=== PATIENT | female | born 1985 | race Caucasian/White ===

== ENCOUNTER 2019-01-01 07:59 | Outpatient (RCR) | payer BC, SELFPAY ==
[2019-01-01 09:35] LABS: Hematocrit 35.5 % (37.0-47.0); Hemoglobin 11.4 g/dL (12.0-15.0)
[2019-01-01 09:47] LABS: Glucose 1 Hour PP 50gm Dose 157 mg/dL
[2019-01-01 10:16] LABS: Vitamin D 25 Hydroxy 36.4 ng/mL
[2019-01-01 10:38] LABS: HIV 1/2 Ab P24 Ag Result Negative (Negative)
[2019-01-02] MEDS: RHO(D) IMMUNE GLOBULIN 300 MCG SYRINGE IM (15:49)
== END 2019-04-01 23:59 | disposition home or self-care (01) ==
LOC: ANHLAB 07:59
PROVIDERS: Visit Provider Obstetrics & Gynecology Gynecology
DX: Z29.13 Encounter for prophylactic Rho(D) immune globulin (principal); O36.0930 Maternal care for other rhesus isoimmunization, third trimester, not applicable or unspecified; Z36.89 Encounter for other specified antenatal screening; Z3A.00 Weeks of gestation of pregnancy not specified
CPT/HCPCS: 36415; 36430; 82306; 82947; 85014; 85018; 86703; 90384; 96372; G0432; J2790

== ENCOUNTER 2019-03-13 15:46 | Outpatient (RCR) | payer BC, SELFPAY ==
[2019-02-20 16:36] VITALS: BP 131/69; PULSE 98
--- NOTE | 2019-02-25 18:22 | PC.NURSE ---
Updated Dr. Guo on FHT strip with variable decelerations during NST. Patient contractions noted via TOCO monitoring, patient states she is not feeling contractions. Order given for BPP and BERNARD.
[2019-02-25 19:05] VITALS: BP 136/86; PULSE 102
--- NOTE | 2019-02-25 19:06 | PC.NURSE ---
Patient transported to ultrasound via wheelchair.
--- NOTE | 2019-02-25 19:44 | PC.NURSE ---
Dr Guo updated on BPP and BERNARD results. Orders given to discharge patient to home.
[2019-02-28 21:30] VITALS: BP 135/77; PULSE 93
[2019-03-04 16:26] VITALS: BP 130/76; PULSE 89
[2019-03-06 16:53] VITALS: BP 139/67; PULSE 79
[2019-03-07 10:54] VITALS: BP 126/73; PULSE 79
[2019-03-10 16:50] VITALS: BP 148/76; PULSE 93
--- NOTE | ~2019-03-13 | US_ITS ---
EXAMINATION: US OB limited w BPP EXAM DATE: 02/25/2019 19:24 INDICATION: Nonreactive stress test. Check biophysical profile and amniotic fluid index. Third trime ster. TECHNIQUE: Pelvic obstetrical transabdominal sonogram was performed by a technologist. There are mu ltiple grayscale and Doppler images available for interpretation. Comparison is made to prior examina tion from 01/29/2019. FINDINGS: There is a single fetus identified in vertex presentation with a heart rate of 145 beats pe r minute. The placenta is located in the anterior position. There is no sonographic evidence of retr oplacental hemorrhage identified. The amniotic fluid index is 23.8 centimeters, which is normal. (The 5th -- 95th percentile range is 7.7-24.9.) BIOPHYSICAL PROFILE (performed by the technologist) breathing (30 sec sustained breathing in 30 minutes): 2 out of 2 movement (3 gross body movements in 30 minutes): 2 out of 2 tone (one episode of [id number]-[id number]-wptlgcg limb movement): 2 out of 2 Amniotic fluid pocket (2 cm): 2 out of 2 Total score: 8 out of 8 IMPRESSION: 1. Single fetus with heart rate of 145 bpm. 2. Normal biophysical profile score of 8 out of 8. 3. Normal BERNARD 23.8 cm. Reviewed, dictated and finalized at location [facility]
[2019-03-13 16:52] LABS: Hematocrit 35.9 % (37.0-47.0); Hemoglobin 10.9 g/dL (12.0-15.0); Mean Corpuscular HGB Conc 30.4 g/dl (32-36); Mean Corpuscular Hemoglobin 24.4 pg (26-34); Mean Corpuscular Volume 80.5 fl (80-100); Mean Platelet Volume 10.6 fl (7.4-10.4); Platelet Count Result 242 k/mm3 (150-375); Red Blood Count 4.46 M/mm3 (4.2-5.4); Red Cell Distribution Width 16.1 % (11.5-14.5); White Blood Count 9.3 K/mm3 (4.5-10.0)
[2019-03-13 17:02] LABS: Add Urine Microscopic? NO; Appearance Urine Clear (Clear); Bilirubin Urine Negative (Negative); Blood Urine Negative (Negative); Color Urine Straw (Yellow); Glucose Urine UA Negative (Negative); Ketones Urine Negative (Negative); Leukocyte Esterase Ur Negative LEU/UL (Negative); Nitrate Urine Negative (Negative); Protein Urine Negative (Negative); Specific Grav Ur 1.008 (1.001-1.035); Urobilinogen Urine Negative mg/dL (<2.0)
[2019-03-13 17:05] LABS: Alanine Aminotransferase 13 U/L (4-35); Albumin Level 3.2 g/dL (3.5-5.1); Alkaline Phosphatase 85 U/L (38-126); Aspartate Amino Transferase 15 U/L (14-36); Bilirubin,Total 0.1 mg/dL (0.2-1.3); Blood Urea Nitrogen 7 mg/dL (7-17); Calcium 9.2 mg/dL (8.4-10.2); Carbon Dioxide 23 mmol/L (22-30); Chloride 105 mmol/L (98-107); Estimated Glomerular Filt Rate > 60; Glucose 98 mg/dL (65-105); Potassium 3.4 mmol/L (3.4-5.0); Sodium 140 mmol/L (137-145); Uric Acid 3.1 mg/dL (2.5-7.5)
[2019-03-13 17:06] LABS: Total Protein Urine Random 16 mg/dL
[2019-03-13 17:15] VITALS: BP 149/90; PULSE 97
== END 2019-04-15 07:53 | disposition home or self-care (01) ==
LOC: ANHOBOP 15:46
PROVIDERS: Visit Provider Obstetrics & Gynecology Gynecology
DX: O24.419 Gestational diabetes mellitus in pregnancy, unspecified control (principal); O36.8130 Decreased fetal movements, third trimester, not applicable or unspecified; Z3A.35 35 weeks gestation of pregnancy; Z3A.36 36 weeks gestation of pregnancy; Z3A.37 37 weeks gestation of pregnancy; Z3A.38 38 weeks gestation of pregnancy
CPT/HCPCS: 36415; 59025; 76815; 76819; 80053; 81003; 81050; 82570; 84156; 84550; 85027

== ENCOUNTER 2020-01-13 02:31 | Outpatient (CLI) | payer BC, SELFPAY ==
[2020-01-13 19:46] LABS: SARS-CoV-2 RNA PCR Negative
== END 2020-01-13 02:32 | disposition home or self-care (01) ==
LOC: ANHCOVIDDT 02:31
PROVIDERS: Visit Provider Urology
DX: Z01.818 Encounter for other preprocedural examination (principal); Z20.828 Contact with and (suspected) exposure to other viral communicable diseases
CPT/HCPCS: 87635; C9803; U0003

== ENCOUNTER 2020-01-16 00:54 | Day surgery (SDC) | payer BC, SELFPAY ==
[2020-01-06 13:23] VITALS: BMI 40.9
--- NOTE | 2020-01-11 13:44 | PM.IMHP ---
H&P: HPI History of Present Illness Date/Time: 01/11/20 13:44 Chief complaint: Skenes Gland Cyst Narrative: Fior Cisse is a 34 year old female with a [place]'s gland cyst Review of Systems Review of Systems: All systems reviewed & are unremarkable except as noted in HPI and below PMFSH Past Medical History Medical History (Updated 01/11/20 @ 13:46 by Hilton Somers MD) Anxiety Depression Gestational diabetes Morbid obesity with BMI of 45.0-49.9, adult Surgical History Surgical History (Updated 03/18/19 @ 07:38 by Taniya Rodríguez MD) Previous section complicating S/P cholecystectomy Family History Family History (Updated 02/20/19 @ 14:54 by Andriy Melton RN) Mother Depression Bipolar disorder Grandparent Cancer Social History Social History Smoking status: Never smoker Second hand tobacco smoke exposure: No Alcohol intake: current Drinks per week: 1 Substance use: current Substance use type: marijuana Last use: MJ--04/2018 Gender identity (if verbalized by the patient): Female Spiritual care concerns: No Meds Home Medications and Allergies Home Medications Medication Instructions Recorded Confirmed Type ergocalciferol (vitamin D2) 50,000 unit PO WEEKLY 02/20/19 01/06/20 History [Vitamin D2] vilazodone [Viibryd] 40 mg PO DAILY 01/06/20 01/06/20 History Allergies Allergy/AdvReac Type Severity Reaction Status Date / Time adhesive tape AdvReac Blister Verified 01/06/20 13:26 Exam Const: General: cooperative and healthy appearing Nutritional Appearance: obese HENMT: Head: normal to inspection Mouth: Yes Normal oral and palatal mucosa present Eyes: General: appearance normal, both eyes and all related structures Chest: Chest palpation & inspection: normal inspection of the chest GI: Inspection: normal to inspection Skin: General skin exam: normal color Neuro: General: oriented to person Assessment and Plan Assessment and plan (1) [place]'s gland cyst: Code(s): N36.8 - Other specified disorders of urethra Status: Acute Assessment and Plan: excision of skenes gland cyst
--- NOTE | 2020-01-15 08:58 | WPDANESEPPF ---
Anes - Initial Pre Proc Eval Procedure: Operation Date: 01/16/20 09:15 Proposed Procedures p Excision Of Skenes Gland Cyst - Hilton Somers MD Date/Time: 01/15/20 08:58 Surgeon: Hilton Somers MD Pre Op Diagnosis: Skenes Gland Cyst Patient Data Age: 34 Gender: F Height: 1.68 m Weight: 115 kg Allergies Allergy/AdvReac Type Severity Reaction Status Date / Time adhesive tape AdvReac Blister Verified 01/16/20 08:03 Home Medications Medication Instructions Recorded Confirmed Type ergocalciferol (vitamin D2) 50,000 unit PO WEEKLY 02/20/19 01/16/20 History [Vitamin D2] vilazodone [Viibryd] 40 mg PO DAILY 01/06/20 01/06/20 History Patient hx anesthesia problems: none Family hx anesthesia problems: none PMFSH Past Medical History Medical History (Updated 01/11/20 @ 13:46 by Hilton Somers MD) Anxiety Depression Gestational diabetes Morbid obesity with BMI of 45.0-49.9, adult Surgical History Surgical History (Updated 03/18/19 @ 07:38 by Taniya Rodríguez MD) Previous section complicating S/P cholecystectomy Family History Family History (Updated 02/20/19 @ 14:54 by Andriy Melton RN) Mother Depression Bipolar disorder Grandparent Cancer Social History Social History Smoking status: Never smoker Second hand tobacco smoke exposure: No Alcohol intake: current Drinks per week: 1 Substance use: current Substance use type: marijuana Last use: MJ--04/2018 Living arrangements: with family Gender identity (if verbalized by the patient): Female Spiritual care concerns: No Anes - Eval Final PreProcedure Day of Procedure 01/15/20 08:58 Patient weight: morbidly obese Heart: regular rate and rhythm Lungs: clear to auscultation and normal air movement Airway: Mallampati scale class II Neurological: alert and oriented Last oral intake: >/= 8 hours ASA classification: III Emergent: no Anesthetic plan: proceed Anesthesia type and monitoring: general GIVS and standard monitoring Informed Consent: The patient's anesthetic plan and its attendant risks and benefits were discussed with the patient/family/POA. Questions were solicited and answers provided to the satisfaction of the patient/family/POA.
[2020-01-16] VITALS (7 sets, daily range): BP systolic 124–137; BP diastolic 64–81; PULSE 57–77; RESP 14–18; TEMP 36.1–36.6; O2SAT 94–100
--- NOTE | 2020-01-16 07:13 | WPDHPUPDATE1 ---
History and Physical Update Update Date/Time: 01/16/20 07:13 History and Physical has been reviewed, including an updated exam of the patient. There are NO changes in the patient's condition. Risks, benefits, and alternatives have been discussed and questions answered. Patient agrees to proceed with procedure.
[2020-01-16] MEDS: LACTATED RINGERS 1,000 ML 30 ML IV CONT (08:20)
[2020-01-16] MEDS: ceFAZolin 3 GM/D5W 100 ML 100 ML IVPB (09:55)
--- NOTE | 2020-01-16 10:35 | PM.PROC ---
Procedure Note - Detailed Date of procedure: 01/16/20 Pre-op diagnosis: Skenes Gland Cyst Post-op diagnosis: same Procedure performed: Excision of [place]'s gland cyst Cystoscopy Description of procedure: She has a large left-sided [place]'s gland cyst. She would like it removed. She understands risks of bleeding, infection, inability to remove the cyst, recurrence and [place]'s gland cyst, damage to the urethra, stress incontinence, fistula, incontinence. She agrees to proceed She is correctly identified informed consent obtained. She from the operating room. She was given general anesthesia. She was prepped and draped in a sterile fashion. Time-out performed. Du catheter is placed. [place] retractor was placed. She had a large [place]'s gland cyst noted on the left. I incised the skin. I then used tenotomy scissors to dissect the [place]'s gland cyst off the underlying tissues. I took great care not to injure the urethra or the vaginal wall. I excised the cyst and send it for pathologic analysis. I then closed the space with a for 0 Vicryl suture. This resulted in excellent hemostasis. I then closed the mucosa to mucosa with 2 0 Vicryl suture. I then performed cystoscopy. The bladder was examined there is no tumors, stones, trabeculations, abnormal red patches, foreign bodies. The urethra was normal without sign of any injury. I left the catheter out. She is awakened and transferred to PACU in stable condition. Implants: None Anesthesia: GLMA Surgeon: Hilton Somers MD Estimated blood loss (mL): 10 Drains: No Packing: No Pathology: yes ([place]'s gland cyst) Complications: No immediate complications Condition: stable Disposition: PACU
== END 2020-01-16 11:50 | disposition home or self-care (01) ==
PROVIDERS: PCP Family Medicine; Visit Provider Urology
PROC: (CPT 57240; principal; 2020-01-16 09:15)
DX: N36.8 Other specified disorders of urethra (principal); F41.8 Other specified anxiety disorders; E66.01 Morbid (severe) obesity due to excess calories; Z68.42 Body mass index [BMI] 45.0-49.9, adult
CPT/HCPCS: 53270; 88305; A9270; J0690; J1100; J2250; J2405; J2704; J3010; J7030; J7120